=== PATIENT | female | born 1995 | race Caucasian/White ===

== ENCOUNTER 2017-02-10 08:10 | Emergency (ER) | payer OTHER ==
[~2017-02-10] VITALS: Ht 154.9 cm; Wt 40.4 kg
[2017-02-10 11:55] VITALS: BP 125/75
== END 2017-02-10 11:55 | disposition home or self-care (01) ==
LOC: ED 08:10
DX: O23.591 Infection of other part of genital tract in pregnancy, first trimester (principal); N76.0 Acute vaginitis; B96.89 Other specified bacterial agents as the cause of diseases classified elsewhere; Z3A.00 Weeks of gestation of pregnancy not specified
CPT/HCPCS: 87491; 87591

== ENCOUNTER 2017-04-17 11:07 | Emergency (ER) | payer OTHER ==
[~2017-04-17] VITALS: Ht 154.9 cm; Wt 43.2 kg
[2017-04-17 14:34] LABS: CALCIUM 8.3 mg/dL (8.5-10.1); CARBON DIOXIDE 26.6 mmol/L (21-32); CHLORIDE SERUM 104 mmol/L (98-107); CREATININE SERUM 0.4 mg/dL (0.6-1.0); GFR1 > 60 mL/min; GLUCOSE SERUM 76 mg/dL (74-106); POTASSIUM SERUM 3.6 mmol/L (3.5-5.1); SODIUM SERUM 136 mmol/L (136-145)
[2017-04-17 14:38] LABS: ALKALINE PHOSPHATASE 61 U/L (46-116); ALT/SGPT 23 U/L (14-59); AST/SGOT 15 U/L (15-37); BILIRUBIN TOTAL 0.4 mg/dL (0.20-1.00)
[2017-04-17 14:39] LABS: ALBUMIN 3.1 g/dL (3.4-5.0)
[2017-04-17 14:44] LABS: AMPHETAMINE QUAL UR NONE DETECTED (NEG <=1000)
[2017-04-17 14:55] LABS: BASOPHIL % 0.4 % (0-2); PLATELET COUNT 297 x10^3mcL (130-400); RED CELL DISTRIBUTION WIDTH 13.8 % (11.5-14.5)
[2017-04-17 15:31] VITALS: BP 111/52
== END 2017-04-17 15:31 | disposition home or self-care (01) ==
LOC: ED 11:07
PROVIDERS: Emergency Medicine
DX: O26.892 Other specified pregnancy related conditions, second trimester (principal); R55 Syncope and collapse; Z3A.00 Weeks of gestation of pregnancy not specified
CPT/HCPCS: 82962; 83880; J3490; J7030

== ENCOUNTER 2017-05-26 18:36 | Emergency (ER) | payer OTHER ==
[~2017-05-26] VITALS: Ht 154.9 cm; Wt 45.4 kg
[2017-05-26 18:52] VITALS: Ht 154.9 cm; Wt 45.4 kg
[2017-05-26 19:36] LABS: BASOPHIL % 0.6 % (0-2); PLATELET COUNT 310 x10^3mcL (130-400); RED CELL DISTRIBUTION WIDTH 13.7 % (11.5-14.5)
[2017-05-27 02:25] VITALS: BP 101/61
== END 2017-05-27 02:25 | disposition home or self-care (01) ==
LOC: ED 18:36
DX: O20.0 Threatened abortion (principal); Z3A.19 19 weeks gestation of pregnancy
CPT/HCPCS: 36415